=== PATIENT | female | born 1960 | race American Indian/Alaskan Native ===

== ENCOUNTER 2017-05-15 08:50 | Day surgery (SDC) | payer BC ==
[~2017-05-15 08:50] MED LIST: LIDOCAINE 2% VISCOUS(20 MG/1 ML) - 15 ML UD CUP PO ONE; LIDOCAINE W/ SODIUM BICARB 0.5 ML SYR ONE; Lactated Ringers 1,000 ML PRIMARY IV ONE; fentaNYL Inj 100 MCG/2 ML VIAL ONE
--- NOTE | 2017-05-15 10:41 | GEN.OPNOTE ---
EGD / Colonoscopy Report Surgery Date: 05/15/17 Preoperative Diagnosis: Cardiac GERD. Dysphagia. Colon cancer screening. Postoperative Diagnosis: Same. Small hiatal hernia. High rectal polyp. Procedure: #1 esophagogastroduodenoscopy with biopsy. #2 complete colonoscopy with hot snare polypectomy at 15 cm from the anal verge. Surgeon: Wilfredo Rodriguez MD Anesthesia Provider: Andrea Russo CRNA Anesthesia Type: MAC Indications: See preoperative diagnosis. EGD Findings: Esophagus: [Normal] GE Junction : [Small hiatal hernia with inflamed mucosa. Irregular Z line with moderate inflammation.] Fundus : [Normal] Body : [Normal] Prepyloric : [Mild erythema] Small Intestine : [Normal] A lubricated flexible upper endoscope was inserted and passed through the esophagus and stomach into the duodenum. The duodenum and duodenal bulb were unremarkable. The pyloric channel was patent. There are some mild erythema in the antrum. Biopsies were taken. Hemostasis was assured. The scope was retroflexed. The remainder of the gastric mucosa was unremarkable. The scope was straightened. Air was aspirated. The scope was withdrawn into the distal esophagus. There is a small 2-3 cm hiatal hernia. There was some exudate at the hiatus. Multiple biopsies were taken. Hemostasis was assured. The scope was withdrawn to the GE junction. There was some irregularity and inflammation. Multiple biopsies were taken. Hemostasis was assured. The scope was withdrawn through the remainder of a normal-appearing esophagus and brought out through the hypopharynx under suction completing the procedure. Colonoscopy Findings: Prep : [Very good] Cecum : [Normal] Ascending : [Normal] Transverse : [Normal] Sigmoid : [A few diverticuli] Rectum : [Small polyp at 15 cm removed with a hot snare.] Digital Rectal Exam : [Normal and the posterior skin tag] A lubricated flexible colonoscope was inserted and passed to the blind end of the cecum. The blind end of the cecum and ileocecal valve were clearly seen. Air was aspirated as the scope was withdrawn. The cecum, ascending colon, hepatic flexure, transverse colon, splenic flexure, and the descending colon were all unremarkable. There were a few scattered diverticuli in the sigmoid colon but otherwise it was unremarkable. In the high rectum at 15 cm was an adenomatous-appearing polyp. Hot snare polypectomy was performed. The base was cauterized. The polyp was retrieved. The remainder of the rectum was unremarkable. The scope was withdrawn completing the procedure. Patient tolerated the procedure well without complication. She was taken to outpatient surgery in stable condition. Follow-up will be in my office on an as-needed basis. We will call the biopsy results when available.
[2017-05-15 10:46] VITALS: RESP 12
[2017-05-15 11:18] VITALS: TEMP 96.9
== END 2017-05-15 11:06 | disposition home or self-care (01) ==
LOC: SDSC 08:50 → EDSTATUS 10:55 → SDSC 11:06
PROVIDERS: ATTEND Surgery
DX: K21.9 Gastro-esophageal reflux disease without esophagitis (principal); Z12.11 Encounter for screening for malignant neoplasm of colon; R13.14 Dysphagia, pharyngoesophageal phase; K63.5 Polyp of colon; K44.9 Diaphragmatic hernia without obstruction or gangrene
CPT/HCPCS: 43239; 45385; J2704; J3010; J7120